=== PATIENT | female | born 1945 ===

== ENCOUNTER 2022-12-29 05:50 | Day surgery (SDC) | payer OTHER | END 2022-12-29 09:40 | disposition home or self-care (01) | LOC: AMB-ENDOS 05:50 | PROVIDERS: ATTEND Surgery | DX: K57.30 Diverticulosis of large intestine without perforation or abscess without bleeding (principal); R19.4 Change in bowel habit; K57.20 Diverticulitis of large intestine with perforation and abscess without bleeding; R10.9 Unspecified abdominal pain; Z20.822 Contact with and (suspected) exposure to COVID-19 ==

== ENCOUNTER 2023-02-05 12:23 | Inpatient (IN) | payer OTHER ==
[~2023-02-05] VITALS: Ht 172.7 cm; Wt 84.4 kg
[2023-02-06] MEDS ORDERED: TOPROL XL50 M1 PO (10:59)
[2023-02-06] MEDS ORDERED: LEVOTHYROXINE25 MCG PO (10:59)
[2023-02-06] MEDS ORDERED: FEOSOL325 MG PO (11:00)
[2023-02-06] MEDS ORDERED: ELIQUIS5 MG PO (11:00)
[2023-02-06] MEDS ORDERED: LASIX20 MG PO (11:00)
[2023-02-12] MEDS ORDERED: HYOSCYAMINE0.125 M1 SL (08:12)
[2023-02-12] MEDS ORDERED: INTESTINEX680 M1 PO (08:13)
== END 2023-02-12 13:59 | disposition home or self-care (01) | DRG 330 ==
LOC: SURG 02-09 05:55 → O/R 02-09 05:55 → SURH 02-09 07:00 → SURG 02-09 12:56
PROVIDERS: ADMIT Surgery; ATTEND Surgery
PROC: 0DBP4ZZ Excision of Rectum, Percutaneous Endoscopic Approach (ICD-10-PCS; 2023-02-09)
PROC: 0DBU4ZZ Excision of Omentum, Percutaneous Endoscopic Approach (ICD-10-PCS; 2023-02-09)
PROC: 0DB84ZZ Excision of Small Intestine, Percutaneous Endoscopic Approach (ICD-10-PCS; 2023-02-09)
PROC: 0DJD8ZZ Inspection of Lower Intestinal Tract, Via Natural or Artificial Opening Endoscopic (ICD-10-PCS; 2023-02-09)
PROC: 0DTN4ZZ Resection of Sigmoid Colon, Percutaneous Endoscopic Approach (ICD-10-PCS; principal; 2023-02-09 07:00)
DX: K57.40 Diverticulitis of both small and large intestine with perforation and abscess without bleeding (principal); I50.32 Chronic diastolic (congestive) heart failure; K63.2 Fistula of intestine; K66.8 Other specified disorders of peritoneum; K66.0 Peritoneal adhesions (postprocedural) (postinfection); I11.0 Hypertensive heart disease with heart failure; E78.5 Hyperlipidemia, unspecified; E03.8 Other specified hypothyroidism; Z86.16 Personal history of COVID-19; Z86.711 Personal history of pulmonary embolism

== ENCOUNTER 2023-05-02 08:07 | Outpatient (CLI) | payer OTHER ==
[~2023-05-02 08:07] MED LIST: ELIQUIS5 MG PO; FEOSOL325 MG PO; HYOSCYAMINE0.125 M1 SL; INTESTINEX680 M1 PO; LASIX20 MG PO; LEVOTHYROXINE25 MCG PO; TOPROL XL50 M1 PO
== END 2023-05-02 08:28 | disposition home or self-care (01) ==
LOC: TOM 08:07
PROVIDERS: ATTEND Internal Medicine Hematology & Oncology
DX: Z91.013 Allergy to seafood (principal); D51.3 Other dietary vitamin B12 deficiency anemia; D50.8 Other iron deficiency anemias; B96.81 Helicobacter pylori [H. pylori] as the cause of diseases classified elsewhere; K57.30 Diverticulosis of large intestine without perforation or abscess without bleeding; I10 Essential (primary) hypertension; R92.0 Mammographic microcalcification found on diagnostic imaging of breast; E11.9 Type 2 diabetes mellitus without complications; M54.50 Low back pain, unspecified; N63.23 Unspecified lump in the left breast, lower outer quadrant; N63.10 Unspecified lump in the right breast, unspecified quadrant; N63.20 Unspecified lump in the left breast, unspecified quadrant; I26.99 Other pulmonary embolism without acute cor pulmonale; Z12.31 Encounter for screening mammogram for malignant neoplasm of breast; N63.0 Unspecified lump in unspecified breast; N64.4 Mastodynia
CPT/HCPCS: 71260; 76641; 77067; Q9965

== ENCOUNTER 2023-09-06 07:50 | Outpatient (CLI) | payer OTHER ==
[2023-09-06 08:44] LABS: HEMATOCRIT 38.7 % (36.0-45.00); MEAN CELL VOLUME 90.2 fL (80.00-100.00); MEAN CORPUSCULAR HEMOGLOBIN 30.2 pg (27.00-32.0); MEAN CORPUSCULAR HGB CONC 33.5 g/dl (32.0-36.0); PLATELET COUNT 312 K/uL (150-450); RED BLOOD COUNT 4.29 M/uL (4.00-6.00); RED CELL DISTRIBUTION WIDTH 14.9 % (11.5-14.5)
[2023-09-06 09:11] LABS: ALBUMIN 3.4 gm/dL (3.4-5.0); BILIRUBIN TOTAL 0.35 mg/dL (0.3-1.2); CALCIUM 9.2 mg/dL (8.5-10.1); CHOL HDL RATIO 3.2 (0-5.0); CREATININE SERUM 0.67 mg/dL (0.55-1.02); GFR 84.9; GLOBULINA 3.2 G/DL (2.4-3.5); POTASSIUM 3.98 mEq/L (3.5-5.1); TOTAL PROTEIN 6.6 gm/dL (6.4-8.2); TSH 1.87 uIU/mL (0.358-3.74)
[2023-09-06 09:20] LABS: FOLIC ACID > 20.00 ng/ml (4.78-20)
== END 2023-09-06 07:51 | disposition home or self-care (01) ==
LOC: LAB 07:50
PROVIDERS: ATTEND Internal Medicine Hematology & Oncology
DX: D53.0 Protein deficiency anemia (principal); D51.3 Other dietary vitamin B12 deficiency anemia; D50.8 Other iron deficiency anemias; E55.9 Vitamin D deficiency, unspecified; R97.0 Elevated carcinoembryonic antigen [CEA]; B97.0 Adenovirus as the cause of diseases classified elsewhere; B96.81 Helicobacter pylori [H. pylori] as the cause of diseases classified elsewhere; K57.30 Diverticulosis of large intestine without perforation or abscess without bleeding; I10 Essential (primary) hypertension; R92.0 Mammographic microcalcification found on diagnostic imaging of breast; E11.9 Type 2 diabetes mellitus without complications; M54.50 Low back pain, unspecified; N63.23 Unspecified lump in the left breast, lower outer quadrant; N63.10 Unspecified lump in the right breast, unspecified quadrant; N63.20 Unspecified lump in the left breast, unspecified quadrant; I26.99 Other pulmonary embolism without acute cor pulmonale; D68.59 Other primary thrombophilia; D68.51 Activated protein C resistance

== ENCOUNTER 2023-09-11 09:01 | Outpatient (CLI) | payer OTHER | END 2023-09-11 14:04 | disposition home or self-care (01) | LOC: LAB 09:01 | PROVIDERS: ATTEND Internal Medicine Hematology & Oncology | DX: D68.61 Antiphospholipid syndrome (principal) ==

== ENCOUNTER 2024-09-09 10:11 | Inpatient (IN) | payer OTHER ==
[~2024-09-09] VITALS: Ht 157.5 cm; Wt 90.7 kg
[2024-09-09] MEDS ORDERED: NEURONTIN300 MG (10:35)
[2024-09-09] MEDS ORDERED: NEURONTIN600 M1 (10:36)
--- NOTE | 2024-09-09 10:36 | NUR ---
PACIENTE ALERTA Y ORIENTADA X3 ACOMPANADA DE FAMILIAR Y PERSONAL DE AMBULANCIA QUIEN REFIERE EN LA MANANA DE HOY SINTIO DIFICULTAD PARA RESPIRAR Y PRESION ALTON EN EL HOGAR. AL MOMENTO DE TRIAGE PACIENTE SE ENCUENTRA SATURANDO 97%.
--- NOTE | 2024-09-09 11:04 | NUR ---
PTE ES ORIENTADO POR JEFF ELLIS Y LA MISMA REFIERE ENTENDER. SE CANALIZA PTE Y SE RECOLECTAN MUESTRAS DE LAB DENISE ORDEN MEDICA BAJO MEDIDAS ASEPTICAS.
[2024-09-09 11:19] LABS: HEMATOCRIT 39.2 % (36.0-45.00); HEMOGLOBIN 12.8 g/dL (12.0-15.00); MEAN CELL VOLUME 93.8 fL (80.00-100.00); MEAN CORPUSCULAR HEMOGLOBIN 30.7 pg (27.00-32.0); MEAN CORPUSCULAR HGB CONC 32.7 g/dl (32.0-36.0); PLATELET COUNT 331 K/uL (150-450); RED BLOOD COUNT 4.18 M/uL (4.00-6.00)
[2024-09-09 11:49] LABS: ALBUMIN 3.3 gm/dL (3.4-5.0); BILIRUBIN TOTAL 0.36 mg/dL (0.3-1.2); CALCIUM 9.7 mg/dL (8.5-10.1); CREATININE SERUM 0.86 mg/dL (0.55-1.02); GFR 63.49; GLOBULINA 3.1 G/DL (2.4-3.5); POTASSIUM 4.41 mEq/L (3.5-5.1); TOTAL PROTEIN 6.4 gm/dL (6.4-8.2)
[2024-09-09 12:25] LABS: ABG PH 7.401 (7.35-7.45); ABG PO2 81.7 mmHg (80-100); ABG pCO2 39.8 mmHg (35-45); BASE EXCESS -0.4 mmol/l; BICARBONATE 24.2 mmol/l (23-25); SaO2 95.9 %; Tco2 25.4 mmol/l
[2024-09-09 12:44] LABS: allen test SATISFACTORY; o2 21 %; puncture site RADIAL LEFT
[2024-09-09] MEDS ORDERED: METHYLPREDNISOLONE SOD SUCC 40 MG VIAL IV ONE (15:00)
[2024-09-09] MEDS ORDERED: METHYLPREDNISOLONE SOD SUCC 40 MG VIAL ONE (15:20)
[2024-09-09] MEDS ORDERED: IPRATROPIUM BROMIDE 0.5 MG/2.5 ML AMPUL.NEB IH SCH (19:24)
[2024-09-09] MEDS ORDERED: ACETAMINOPHEN 500 MG GEL..CAP PO PRN (19:30)
[2024-09-09] MEDS ORDERED: ENOXAPARIN SODIUM 80 MG/0.8 ML SYRINGE SUBCUTANEO SCH (21:00)
[2024-09-09] MEDS ORDERED: ENOXAPARIN SODIUM 80 MG/0.8 ML SYRINGE SUBCUTANEO ONE (21:44)
[2024-09-09 22:05] LABS: INR 1.05; PROTHROMBIN TIME 11.4 SECONDS (9.0-11.5)
[2024-09-09 22:22] LABS: D DIMER 0.26 MG/L; PARTIAL THROMBOPLASTIN TIME 27.1 SECONDS (22.0-34.0)
[2024-09-10] VITALS (12 sets, daily range): BP systolic 111–162; BP diastolic 61–96; O2SAT 95–100
[2024-09-10] MEDS ORDERED: LEVOTHYROXINE SODIUM 25 MCG TABLET PO SCH (06:00)
[2024-09-10] MEDS ORDERED: FUROsemide 20 MG/2 ML VIAL ONE (08:41)
[2024-09-10] MEDS ORDERED: ENOXAPARIN SODIUM 80 MG/0.8 ML SYRINGE SUBCUTANEO ONE (08:42)
[2024-09-10] MEDS ORDERED: METOPROLOL TARTRATE 25 MG TABLET PO ONE (08:42)
[2024-09-10] MEDS ORDERED: FAMOTIDINE/PF 20 MG/2 ML VIAL ONE (08:42)
[2024-09-10] MEDS ORDERED: ENOXAPARIN SODIUM 100 MG/ML SYRINGE SUBCUTANEO SCH (09:00)
[2024-09-10] MEDS ORDERED: FUROsemide 20 MG/2 ML VIAL IV SCH (09:00)
[2024-09-10] MEDS ORDERED: FAMOTIDINE/PF 20 MG in 0.9 % SODIUM CHLORIDE 8 ML IV PUSH SCH (09:00)
[2024-09-10] MEDS ORDERED: METOPROLOL SUCCINATE 50 MG TAB.SR.24H PO SCH (09:00)
[2024-09-11 02:53] VITALS: BP 157/96
[2024-09-11 06:27] LABS: HEMATOCRIT 36.2 % (36.0-45.00); HEMOGLOBIN 12.4 g/dL (12.0-15.00); MEAN CELL VOLUME 92.2 fL (80.00-100.00); MEAN CORPUSCULAR HEMOGLOBIN 31.6 pg (27.00-32.0); MEAN CORPUSCULAR HGB CONC 34.2 g/dl (32.0-36.0); PLATELET COUNT 339 K/uL (150-450); RED BLOOD COUNT 3.93 M/uL (4.00-6.00)
[2024-09-11 07:20] VITALS: BP 173/80
[2024-09-11 07:24] LABS: ALBUMIN 3.2 gm/dL (3.4-5.0); BILIRUBIN TOTAL 0.38 mg/dL (0.3-1.2); CALCIUM 9.1 mg/dL (8.5-10.1); GFR 53.35; GLOBULINA 3.1 G/DL (2.4-3.5); POTASSIUM 4.2 mEq/L (3.5-5.1); TOTAL PROTEIN 6.3 gm/dL (6.4-8.2)
[2024-09-11 09:25] VITALS: O2SAT 95
[2024-09-11 12:17] VITALS: O2SAT 94
[2024-09-11 14:25] VITALS: BP 145/90; O2SAT 96
[2024-09-11 18:18] VITALS: BP 148/102
[2024-09-12 01:33] VITALS: O2SAT 95
[2024-09-12 02:17] VITALS: BP 140/95; O2SAT 94
[2024-09-12 05:31] VITALS: O2SAT 93
[2024-09-12] MEDS ORDERED: FAMOtidine 20 MG TABLET PO SCH (09:00)
[2024-09-12 09:03] VITALS: BP 148/70; O2SAT 90; O2SAT 96
[2024-09-12] MEDS ORDERED: XARELTO15 MG PO (09:03)
[2024-09-12] MEDS ORDERED: XARELTO20 MG PO (09:04)
== END 2024-09-12 10:10 | disposition home or self-care (01) | DRG 176 ==
LOC: ER 10:11 → ICU-2 19:52 → MEDJ 09-10 17:18
PROVIDERS: Emergency Medicine; General Practice; ADMIT Internal Medicine; ATTEND Internal Medicine
PROC: BW24YZZ Computerized Tomography (CT Scan) of Chest and Abdomen using Other Contrast (ICD-10-PCS; principal; 2024-09-09)
PROC: B54DZZZ Ultrasonography of Bilateral Lower Extremity Veins (ICD-10-PCS; 2024-09-09)
PROC: B24BYZZ Ultrasonography of Heart with Aorta using Other Contrast (ICD-10-PCS; 2024-09-09)
DX: I26.99 Other pulmonary embolism without acute cor pulmonale (principal); I11.0 Hypertensive heart disease with heart failure; I50.9 Heart failure, unspecified; I27.20 Pulmonary hypertension, unspecified; D64.9 Anemia, unspecified; I48.91 Unspecified atrial fibrillation

== ENCOUNTER 2024-12-31 10:54 | Outpatient (CLI) | payer OTHER ==
[~2024-12-31 10:54] MED LIST changes: +NEURONTIN300 MG; +NEURONTIN600 M1; +XARELTO15 MG PO; +XARELTO20 MG PO
== END 2024-12-31 10:55 | disposition home or self-care (01) ==
LOC: NUCLEAR 10:54
PROVIDERS: ATTEND Internal Medicine
DX: I10 Essential (primary) hypertension (principal)